=== PATIENT | female | born 1930 | race Caucasian/White ===

== ENCOUNTER → 2017-08-29 | Outpatient (CLI) | payer MEDICARE, OTHER | END | disposition home or self-care (01) | LOC: KCIC MRI 10:41 | DX: M47.892 Other spondylosis, cervical region (principal); Z85.3 Personal history of malignant neoplasm of breast | CPT/HCPCS: 72141 ==

== ENCOUNTER 2017-10-15 11:18 | Inpatient (IN) | payer MEDICARE, OTHER ==
[2017-10-15 11:45] LABS: ADD MAN DIFF? NO
[2017-10-15 12:01] LABS: BASO # 0.1 x10^3/uL (0.0-0.2); BASO % 1 % (0-3); BILIRUBIN,URINE NEGATIVE (NEG); CLARITY,URINE CLEAR; COLOR,URINE YELLOW; EOS # 0.1 x10^3/uL (0.0-0.7); EOS % 2 % (0-3); GLUCOSE,URINE NEGATIVE (NEG); HEMATOCRIT 40.9 % (36.0-47.0); HEMOGLOBIN 13.4 g/dL (12.0-15.5); LYMPH % 16 % (24-48); MEAN CORPUSCULAR HEMOGLOBIN 29 pg (25-35); MEAN CORPUSCULAR HGB CONC 33 g/dL (31-37); MEAN CORPUSCULAR VOLUME 90 fL (79-100); MONO # 0.4 x10^3/uL (0.0-1.1); MONO % 7 % (0-9); NEUT # 4.7 x10^3uL (1.8-7.7); NEUT % 74 % (31-73); NITRITE,URINE NEGATIVE (NEG); PLATELET COUNT 283 x10^3/uL (140-400); PROTEIN,URINE NEGATIVE (NEG-TRACE); RED BLOOD COUNT 4.54 x10^6/uL (3.50-5.40); RED CELL DISTRIBUTION WIDTH 14.1 % (11.5-14.5); UROBILINOGEN,URINE 0.2 mg/dL (0.2 mg/dL); WHITE BLOOD COUNT 6.3 x10^3/uL (4.0-11.0)
[2017-10-15 12:06] LABS: MAGNESIUM 1.7 mg/dL (1.8-2.4)
[2017-10-15 12:07] LABS: ANION GAP 9 (6-14); BLOOD UREA NITROGEN 20 mg/dL (7-20); CALCIUM 9.9 mg/dL (8.5-10.1); CARBON DIOXIDE 32 mmol/L (21-32); CHLORIDE 97 mmol/L (98-107); CREATININE 0.8 mg/dL (0.6-1.0); GFR 67.7; GLUCOSE 111 mg/dL (70-99); POTASSIUM 3.4 mmol/L (3.5-5.1); SODIUM 138 mmol/L (136-145)
[2017-10-15 12:13] LABS: BACTERIA,URINE MANY /HPF (0-FEW); RBC,URINE 0 /HPF (0-2); SQUAMOUS EPITHELIAL CELL,UR FEW /LPF
[2017-10-15 12:17] LABS: TROPONINI < 0.017 ng/mL (0.000-0.055)
[2017-10-15 12:18] LABS: ALBUMIN 3.9 g/dL (3.4-5.0); ALK PHOS 69 U/L (46-116); ALT (SGPT) 22 U/L (14-59); AST (SGOT) 28 U/L (15-37); DIRECT BILIRUBIN 0.1 mg/dL (0.0-0.2); TOTAL BILIRUBIN 0.6 mg/dL (0.2-1.0); TOTAL PROTEIN 7.9 g/dL (6.4-8.2)
[2017-10-15 12:21] LABS: THYROID STIM HORMONE (TSH) 4.083 uIU/mL (0.358-3.74)
[2017-10-15 12:23] LABS: NT-PRO BNP 656 pg/mL (0-449)
[2017-10-15 12:23] LABS: CKMB MASS 2.4 ng/mL (0.0-3.6); CREATINE KINASE 73 U/L (26-192)
[2017-10-15] MEDS: LABETALOL 20 MG/4 ML DISP.SYRIN. IVP ×2 (12:39)
[2017-10-15] MEDS: IV NORMAL SALINE 1000ML BAG 1,000 ML IV ×2 (13:15)
[2017-10-15] MEDS ORDERED: CONTRAST GIVEN MC ×2 (13:45)
[2017-10-15] MEDS: IOHEXOL 300 MG/ML 100ML VIAL. IV ×2 (13:47)
[2017-10-15 17:57] LABS: TROPONINI < 0.017 ng/mL (0.000-0.055)
[2017-10-15] MEDS: hydroCHLOROthiazide 25 MG TABLET PO ×2 (18:00)
[2017-10-15 19:59] LABS: TROPONINI < 0.017 ng/mL (0.000-0.055)
[2017-10-15] MEDS: traMADol 50 MG TABLET PO ×2 (20:18)
[2017-10-15] MEDS: MECLIZINE HCL 12.5 MG TABLET. PO ×2 (20:20)
[2017-10-15] MEDS: ONDANSETRON PF 4 MG/2 ML VIAL. IV ×2 (20:21)
[2017-10-15 20:32] LABS: ANION GAP 12 (6-14); BLOOD UREA NITROGEN 17 mg/dL (7-20); CALCIUM 9.5 mg/dL (8.5-10.1); CARBON DIOXIDE 28 mmol/L (21-32); CHLORIDE 96 mmol/L (98-107); CREATININE 0.7 mg/dL (0.6-1.0); GLUCOSE 143 mg/dL (70-99); POTASSIUM 3.4 mmol/L (3.5-5.1); SODIUM 136 mmol/L (136-145)
[2017-10-15] MEDS: ENOXAPARIN 40 MG/0.4 ML SYRINGE. SQ ×2 (22:38)
[2017-10-15] MEDS: METOPROLOL TART IMMED RELEASE 50 MG TABLET. PO ×2 (22:39)
[2017-10-16] MEDS: hydrALAZINE 20 MG/ML VIAL. IVP ×4 (00:05→08:04)
[2017-10-16] MEDS: ONDANSETRON PF 4 MG/2 ML VIAL. IV ×4 (02:34→11:28)
[2017-10-16] MEDS: traMADol 50 MG TABLET PO ×2 (02:35)
[2017-10-16 05:07] LABS: ADD MAN DIFF? NO
[2017-10-16] MEDS: IV NORMAL SALINE 1000ML BAG 1,000 ML IV ×2 (05:16)
[2017-10-16 05:23] LABS: BASO % 0 % (0-3); EOS % 0 % (0-3); HEMATOCRIT 35.9 % (36.0-47.0); LYMPH # 0.6 x10^3/uL (1.0-4.8); LYMPH % 10 % (24-48); MEAN CORPUSCULAR HEMOGLOBIN 30 pg (25-35); MEAN CORPUSCULAR HGB CONC 34 g/dL (31-37); MEAN CORPUSCULAR VOLUME 90 fL (79-100); MONO # 0.3 x10^3/uL (0.0-1.1); MONO % 5 % (0-9); NEUT # 5.1 x10^3uL (1.8-7.7); NEUT % 85 % (31-73); PLATELET COUNT 272 x10^3/uL (140-400); RED CELL DISTRIBUTION WIDTH 13.6 % (11.5-14.5); WHITE BLOOD COUNT 6.1 x10^3/uL (4.0-11.0)
[2017-10-16] MEDS ORDERED: POTASSIUM CHLORIDE 20 MEQ TABLET.ER. PO ×2 (07:30)
[2017-10-16] MEDS: PANTOPRAZOLE 40 MG TABLET.DR. PO ×2 (08:01)
[2017-10-16] MEDS: POTASSIUM CHLORIDE 20 MEQ TABLET.ER. PO ×4 (08:02→15:11)
[2017-10-16] MEDS: METOPROLOL TART IMMED RELEASE 50 MG TABLET. PO ×4 (08:02→22:19)
[2017-10-16] MEDS: hydroCHLOROthiazide 25 MG TABLET PO ×2 (08:02)
[2017-10-16] MEDS: MAGNESIUM SULFATE 2GM 50 ML IV ×2 (08:03)
[2017-10-16 09:12] LABS: ANION GAP 10 (6-14); BLOOD UREA NITROGEN 20 mg/dL (7-20); CARBON DIOXIDE 28 mmol/L (21-32); CHLORIDE 98 mmol/L (98-107); CHOLESTEROL 289 mg/dL (0-200); CREATININE 0.8 mg/dL (0.6-1.0); GFR 67.7; GLUCOSE 132 mg/dL (70-99); HDLC 38 mg/dL (40-60); LDLC 201 mg/dL (0-100); MAGNESIUM 1.5 mg/dL (1.8-2.4); NON-HDL CHOLESTEROL 251 mg/dL (0-129); POTASSIUM 3.2 mmol/L (3.5-5.1); SODIUM 136 mmol/L (136-145); TRIGLYCERIDES 250 mg/dL (0-150); VLDLC 50 mg/dL (0-40)
[2017-10-16 09:13] LABS: CHOLESTEROL/HDL RATIO 7.6
[2017-10-16] MEDS: PROCHLORPERAZINE 10 MG/2 ML VIAL. IV ×2 (09:19)
[2017-10-16] MEDS: ACETAMINOPHEN 500 MG TABLET PO ×4 (11:16→17:33)
[2017-10-16] MEDS: MECLIZINE HCL 12.5 MG TABLET. PO ×2 (11:28)
[2017-10-16] MEDS ORDERED: MECLIZINE HCL 12.5 MG TABLET. PO ×2 (11:30)
[2017-10-16] MEDS ORDERED: POTASSIUM CHLORIDE 20 MEQ/15 ML ORAL LIQUID. PO ×2 (12:00)
[2017-10-16] MEDS: ENOXAPARIN 40 MG/0.4 ML SYRINGE. SQ ×2 (22:19)
[2017-10-17 04:38] LABS: ADD MAN DIFF? NO
[2017-10-17 04:56] LABS: BASO % 1 % (0-3); EOS % 0 % (0-3); HEMATOCRIT 36.1 % (36.0-47.0); HEMOGLOBIN 12.2 g/dL (12.0-15.5); LYMPH # 1.3 x10^3/uL (1.0-4.8); LYMPH % 19 % (24-48); MEAN CORPUSCULAR HEMOGLOBIN 30 pg (25-35); MEAN CORPUSCULAR HGB CONC 34 g/dL (31-37); MEAN CORPUSCULAR VOLUME 90 fL (79-100); MONO # 0.6 x10^3/uL (0.0-1.1); MONO % 9 % (0-9); NEUT # 4.8 x10^3uL (1.8-7.7); NEUT % 71 % (31-73); PLATELET COUNT 281 x10^3/uL (140-400); RED BLOOD COUNT 3.99 x10^6/uL (3.50-5.40); RED CELL DISTRIBUTION WIDTH 13.7 % (11.5-14.5); WHITE BLOOD COUNT 6.8 x10^3/uL (4.0-11.0)
[2017-10-17 05:41] LABS: ANION GAP 10 (6-14); BLOOD UREA NITROGEN 24 mg/dL (7-20); CALCIUM 8.9 mg/dL (8.5-10.1); CARBON DIOXIDE 27 mmol/L (21-32); CHLORIDE 101 mmol/L (98-107); CREATININE 1.1 mg/dL (0.6-1.0); GFR 46.9; GLUCOSE 98 mg/dL (70-99); POTASSIUM 3.1 mmol/L (3.5-5.1); SODIUM 138 mmol/L (136-145)
[2017-10-17] MEDS: POTASSIUM CHLORIDE 20 MEQ TABLET.ER. PO ×4 (08:00→09:01)
[2017-10-17] MEDS: hydroCHLOROthiazide 25 MG TABLET PO ×2 (09:01)
[2017-10-17] MEDS: PANTOPRAZOLE 40 MG TABLET.DR. PO ×2 (09:01)
[2017-10-17] MEDS: METOPROLOL TART IMMED RELEASE 50 MG TABLET. PO ×2 (09:02)
== END 2017-10-17 11:42 | disposition home health service (06) | DRG 149 ==
LOC: ER 11:18 → 6 SOUTH 13:15
DX: H81.10 Benign paroxysmal vertigo, unspecified ear (principal); E83.42 Hypomagnesemia; J44.9 Chronic obstructive pulmonary disease, unspecified; I38 Endocarditis, valve unspecified; I16.0 Hypertensive urgency; E03.9 Hypothyroidism, unspecified; I10 Essential (primary) hypertension; E87.6 Hypokalemia; E78.5 Hyperlipidemia, unspecified; H91.90 Unspecified hearing loss, unspecified ear; Z96.659 Presence of unspecified artificial knee joint; R29.6 Repeated falls; Z82.49 Family history of ischemic heart disease and other diseases of the circulatory system; Z85.3 Personal history of malignant neoplasm of breast; Z98.82 Breast implant status; Z88.0 Allergy status to penicillin; Z88.8 Allergy status to other drugs, medicaments and biological substances; Z88.1 Allergy status to other antibiotic agents
CPT/HCPCS: 36415; 70450; 70496; 70498; 70551; 71045; 80048; 80061; 80076; 81001; 82553; 83735; 83880; 84443; 84484; 85025; 87086; 87186; 93005; 93306; 96374; 96375; 97162-GP; 99291-25; J0360; J0780; J1650; J2405; J3475; J3490; J7030; J8597; Q9967